=== PATIENT | female | born 2000 | race African-American/Black ===

== ENCOUNTER 2024-04-13 15:33 | Emergency (ER) | payer SELFPAY ==
[2024-04-13 15:40] VITALS: BP 106/62; PULSE 95; RESP 20; TEMP 98.2; BMI 28.3
[2024-04-13 16:05] LABS: EPI CELLS 11 /uL (0-25.1); HYALINE CASTS 0 /uL (0-3.1); URINE APPEARANCE CLOUDY; URINE BACTERIA >9,000 /uL (0-1359); URINE BILIRUBIN NEGATIVE (NEGATIVE); URINE COLOR YELLOW; URINE GLUCOSE (UA) NEGATIVE (NEGATIVE); URINE KETONE NEGATIVE (NEGATIVE); URINE LEUK ESTERASE 3+ (NEGATIVE); URINE NITRITE POSITIVE (NEGATIVE); URINE PROTEIN TRACE (NEGATIVE); URINE RBC 45 /uL (0-23.9); URINE UROBILINOGEN 0.2 mg/dL (0.2-1.0); URINE WBC 2122 /uL (0-25.8)
[2024-04-13 16:07] LABS: HCG,QUALITATIVE URINE Negative
[2024-04-13 17:26] LABS: BASO % 0.4 % (0-2.0); EOS % 0.7 % (0-4.5); HEMATOCRIT 35.5 % (32.4-45.2); HEMOGLOBIN 11.4 GM/dL (10.7-15.3); LYMPH % 20.1 % (8-40); MCH 24.7 pg (25.7-33.7); MCHC 32.1 g/dl (32.0-36.0); MEAN PLT VOLUME 6.9 fl (7.5-11.1); MONO % 6.2 % (3.8-10.2); NEUT % 72.6 % (42.8-82.8); PLATELET COUNT 395 10^3/uL (134-434); RBC 4.61 M/mm3 (3.60-5.2); RDW 16.7 % (11.6-15.6); WHITE BLOOD COUNT 8.2 K/mm3 (4.0-10.0)
[2024-04-13] MEDS ORDERED: DOXYCYCLINE HYCLATE 100 MG CAPSULE PO ONE (17:27)
[2024-04-13] MEDS ORDERED: metroNIDAZOLE 250 MG TABLET ONE (17:28)
[2024-04-13] MEDS: metroNIDAZOLE 500 MG TABLET PO ONE (17:49)
[2024-04-13] MEDS: DOXYCYCLINE HYCLATE 100 MG CAPSULE PO ONE (17:51)
[2024-04-13 18:47] LABS: HIV INTERPRETATION NEGATIVE (NEGATIVE)
== END 2024-04-13 18:26 | disposition home or self-care (01) ==
LOC: JERFT 15:33
DX: N73.0 Acute parametritis and pelvic cellulitis (principal); Z11.3 Encounter for screening for infections with a predominantly sexual mode of transmission; M54.50 Low back pain, unspecified; R35.0 Frequency of micturition; R30.0 Dysuria; R10.30 Lower abdominal pain, unspecified; R68.83 Chills (without fever)
CPT/HCPCS: 36415; 81003; 84703; 85025; 86695; 86696; 86780; 87070; 87086; 87186; 87205; 87389; 87491; 87522; 87591; 87661; 99284-25